=== PATIENT | female | born 1980 ===

== ENCOUNTER 2018-11-09 15:15 | Emergency (ER) | payer SELFPAY ==
[2018-11-09 15:28] VITALS: BMI 23.6
[2018-11-09 15:31] VITALS: RESP 16; O2SAT 100
[2018-11-09 17:26] LABS: BASO % 0.6 % (0.0-2.0); EOS % 0.4 % (0.0-4.0); HEMOGLOBIN 12.6 g/dL (11.0-16.0); LYMPH # 3.2 K/uL (1.0-4.3); LYMPH % 39.6 % (20.0-40.0); MEAN CELL VOLUME 84.8 fL (81.0-99.0); MEAN CORPUSCULAR HEMOGLOBIN 27.7 pg (27.0-31.0); MEAN CORPUSCULAR HGB CONC 32.6 g/dL (33.0-37.0); MEAN PLATELET VOLUME 9.9 fL (7.2-11.7); MONO # 0.4 K/uL (0.0-0.8); MONO % 4.9 % (0.0-10.0); NEUT # 4.4 K/uL (1.8-7.0); NEUT % 54.5 % (50.0-75.0); RBC 4.55 Mil/uL (3.80-5.20); RED CELL DISTRIBUTION WIDTH 12.3 % (11.5-14.5); WHITE BLOOD COUNT 8.1 K/uL (4.8-10.8)
[2018-11-09 17:29] LABS: SQUAMOUS EPITHIAL 1 /hpf (0-5); URINE BACTERIA OCC (<OCC); URINE BILIRUBIN NEGATIVE (NEGATIVE); URINE BLOOD 3+ (NEGATIVE); URINE CLARITY Clear (Clear); URINE COLOR Yellow (YELLOW); URINE GLUCOSE (UA) NORMAL (Normal); URINE LEUKOCYTE ESTERASE TRACE Leu/uL (Negative); URINE PROTEIN 1+ mg/dL (NEGATIVE); URINE UROBILINOGEN NORMAL mg/dL (0.2-1.0)
[2018-11-09 17:41] LABS: ALB/GLOB RATIO 1.6 (1.0-2.1); ALBUMIN 4.1 g/dL (3.5-5.0); ALT/SGPT 25 U/L (9-52); AST/SGOT 27 U/L (14-36); BLOOD UREA NITROGEN 11 mg/dL (7-17); CALCIUM 8.6 mg/dl (8.6-10.4); GFR NON-AFRICAN AMERICAN > 60
--- NOTE | 2018-11-09 18:19 | US ---
Date of service: 11/09/2018 Indication: preg/vag bleeding Comparison: None available Technique: Real-time transabdominal pelvic ultrasound was performed. In addition a transvaginal pelvic ultrasound was necessary to better depict pelvic anatomy. Findings: Uterus measures approximately 9.0 x 7.1 x 8.6 cm. Anteverted. Cervix length measures approximately 3.0 cm. Two probable uterine fibroids measuring 1.2 x 1.3 x 1.6 cm (anterior) and 1.5 x 1.7 x 1.6 cm (posterior). There is a single intrauterine fetus present. 2 mm yolk sac. The gestational sac measures 3.4 cm and is compatible with a gestational age of 8 weeks 3 days. The crown-rump length measures 1.3 cm and is compatible with a gestational age of 7 weeks 3 days. Evidence of 2.8 x 2.0 x 2.9 cm subchorionic hemorrhage with 1.2 x 1.4 x 1.6 cm echogenic focus, possibly blood products/hematoma. heart motion is not detected. The right ovary measures 2.5 x 2.0 x 2.2 cm. The left ovary measures 2.3 x 1.6 x 2.4. Blood flow was demonstrated to both ovaries. Impression: Single intrauterine with estimated gestational age 8 weeks 3 days by gestational sac calculation and 7 weeks 3 days by crown-rump length calculation. heart motion was not detected. Recommend clinical correlation including FAMILY SERVICE AIDE consultation, quantitative beta HCG, and follow-up ultrasound as indicated. Evidence of 2.8 x 2.0 x 2.9 cm subchorionic hemorrhage with 1.2 x 1.4 x 1.6 cm echogenic focus, possibly blood products/hematoma. Advise an anomaly screen at 16-18 weeks gestational age Two probable uterine fibroids.
--- NOTE | 2018-11-09 19:16 | C.PDOC ---
History Of Present Illness 38 year old female presents to the ED for evaluation of vaginal bleeding associated with lower abdominal cramping which began today. Patient is not receiving care at this time. Her states that she was evaluated in [facility] and underwent an ultrasound that showed 6 weeks gestation. Patient states her LMP was 08/17/2018 and she is . Otherwise denies fever, chills, back pain. Time Seen by Provider: 11/09/18 16:10 Chief Complaint (Nursing): Female Genitourinary History Per: Patient History/Exam Limitations: no limitations Onset/Duration Of Symptoms: Hrs Current Symptoms Are (Timing): Still Present Quality Of Discomfort: Cramping Abnormal Vaginal Bleeding: Yes Last Menstral Period: 08/17/2018 : 3 Para: 1 Past Medical History Reviewed: Historical Data, Nursing Documentation, Vital Signs Vital Signs: Last Vital Signs Temp 97.7 F 11/09/18 15:28 Pulse 82 11/09/18 15:28 Resp 16 11/09/18 15:28 BP 103/62 11/09/18 15:28 Pulse Ox 100 11/09/18 15:28 - Medical History PMH: No Chronic Diseases Surgical History: No Surg Hx Family History: States: Unknown Family Hx - Social History Hx Alcohol Use: No Hx Substance Use: No Review Of Systems Constitutional: Negative for: Fever, Chills Gastrointestinal: Positive for: Abdominal Pain (cramping ) Genitourinary: Positive for: Vaginal Bleeding Musculoskeletal: Negative for: Back Pain Physical Exam - Physical Exam Appears: Non-toxic, No Acute Distress Skin: Normal Color, Warm, Dry Head: Atraumatic, Normacephalic Eye(s): bilateral: Normal Inspection Oral Mucosa: Moist Neck: Supple Chest: Symmetrical, No Deformity, No Tenderness Cardiovascular: Rhythm Regular, No Murmur Respiratory: Normal Breath Sounds, No Rales, No Rhonchi, No Wheezing Gastrointestinal/Abdominal: Soft, No Tenderness, No Guarding, No Rebound Pelvic: Vaginal Bleeding, No Cervix Open (closed ) Extremity: Normal ROM, Capillary Refill (less than 2 seconds ) Neurological/Psych: Oriented x3, Normal Speech, Normal Cognition ED Course And Treatment - Laboratory Results Result Diagrams: 11/09/18 17:12 11/09/18 17:12 Lab Results: Total Bilirubin 0.2 mg/dL (0.2-1.3) 11/09/18 17:12 AST 27 U/L (14-36) 11/09/18 17:12 ALT 25 U/L (9-52) 11/09/18 17:12 Alkaline Phosphatase 38 U/L (38-126) 11/09/18 17:12 Total Protein 6.7 g/dL (6.3-8.3) 11/09/18 17:12 Albumin 4.1 g/dL (3.5-5.0) 11/09/18 17:12 Globulin 2.6 gm/dL (2.2-3.9) 11/09/18 17:12 Albumin/Globulin Ratio 1.6 (1.0-2.1) 11/09/18 17:12 Urine Color Yellow (YELLOW) 11/09/18 17:12 Urine Clarity Clear (Clear) 11/09/18 17:12 Urine pH 6.0 (5.0-8.0) 11/09/18 17:12 Ur Specific [place] 1.020 (1.003-1.030) 11/09/18 17:12 Urine Protein 1+ mg/dL (NEGATIVE) H 11/09/18 17:12 Urine Glucose (UA) Normal mg/dL (Normal) 11/09/18 17:12 Urine Ketones Negative mg/dL (NEGATIVE) 11/09/18 17:12 Urine Blood 3+ (NEGATIVE) H 11/09/18 17:12 Urine Nitrate Negative (NEGATIVE) 11/09/18 17:12 Urine Bilirubin Negative (NEGATIVE) 11/09/18 17:12 Urine Urobilinogen Normal mg/dL (0.2-1.0) 11/09/18 17:12 Ur Leukocyte Esterase Trace Blayne/uL (Negative) 11/09/18 17:12 Urine WBC (Auto) 4 /hpf (0-5) 11/09/18 17:12 Urine RBC (Auto) 116 /hpf (0-3) H 11/09/18 17:12 Ur Squamous Epith Cells 1 /hpf (0-5) 11/09/18 17:12 Urine Bacteria Occ (<OCC) H 11/09/18 17:12 Beta HCG, Quant 3155.20 mIU/ML 11/09/18 17:12 O2 Sat by Pulse Oximetry: 100 (on RA) Pulse Ox Interpretation: Normal - CT Scan/US ultrasound Other Rad Studies (CT/US): Read By Radiologist, Radiology Report Reviewed CT/US Interpretation: Date of service: 11/09/2018. Indication: preg/vag bleeding. Comparison: None available. Technique: Real-time transabdominal pelvic ultrasound was performed. In addition a transvaginal pelvic ultrasound was necessary to better depict pelvic anatomy. Findings: Uterus measures approximately 9.0 x 7.1 x 8.6 cm. Anteverted. Cervix length measures approximately 3.0 cm. Two probable uterine fibroids measuring 1.2 x 1.3 x 1.6 cm (anterior) and 1.5 x 1.7 x 1.6 cm (posterior). There is a single intrauterine fetus present. 2 mm yolk sac. The gestational sac measures 3.4 cm and is compatible with a gestational age of 8 weeks 3 days. The crown-rump length measures 1.3 cm and is compatible with a gestational age of 7 weeks 3 days. Evidence of 2.8 x 2.0 x 2.9 cm subchorionic hemorrhage with 1.2 x 1.4 x 1.6 cm echogenic focus, possibly blood products/hematoma. heart motion is not detected. The right ovary measures 2.5 x 2.0 x 2.2 cm. The left ovary measures 2.3 x 1.6 x 2.4. Blood flow was demonstrated to both ovaries. Impression: Single intrauterine with estimated gestational age 8 weeks 3 days by gestational sac calculation and 7 weeks 3 days by crown-rump length calculation. heart motion was not detected. Recommend clinical correlation including ART THERAPY CERTIFIED SUPERVISOR consultation, quantitative beta HCG, and follow-up ultrasound as indicated. Evidence of 2.8 x 2.0 x 2.9 cm subchorionic hemorrhage with 1.2 x 1.4 x 1.6 cm echogenic focus, possibly blood products/hematoma. Advise an anomaly screen at 16-18 weeks gestational age. Two probable uterine fibroids. Medical Decision Making Medical Decision Making: Progress: Bloodwork, urinalysis and ultrasound ordered and reviewed. Ultrasound shows no heart rate. Case discussed with Dr. Ferguson (PRESS CUTTER) hr receptionist, who states patient is likely undergoing a missed . Advised to instruct patient to follow up for evacuation. Disposition Counseled Patient/Family Regarding: Studies Performed, Diagnosis, Need For Followup - Disposition Referrals: [facility] [Outside] [facility]Outside] [facility] [Outside] Disposition: HOME/ ROUTINE Disposition Time: 19:18 Condition: STABLE Additional Instructions: LONNY ASH, thank you for letting us take care of you today. Your provider was Kerry Merritt MD and you were treated for VAGINAL BLEEDING. The emergency medical care you received today was directed at your acute symptoms. If you were prescribed any medication, please fill it and take as directed. It may take several days for your symptoms to resolve. Return to the Emergency Department if your symptoms worsen, do not improve, or if you have any other problems. Please contact your doctor or call one of the physicians/clinics you have been referred to that are listed on the Patient Visit Information form that is included in your discharge packet. Bring any paperwork you were given at discharge with you along with any medications you are taking to your follow up visit. Our treatment cannot replace ongoing medical care by a primary care provider outside of the emergency department. Thank you for allowing the [facility] team to be part of your care today. TIEMARIA M QUE HACER FRANCINE ZACARIAS EN 1-2 BARTH CON MALT ROASTER. Instructions: Miscarriage (DC) Forms: Gen Discharge Inst Faroese, BISON (Faroese) Print Language: POLISH - POA Present On Arrival: None - Clinical Impression Clinical Impression: Missed - Scribe Statement The provider has reviewed the documentation as recorded by the Scribe (Gail Renee) Provider Attestation: All medical record entries made by the Scribe were at my direction and personally dictated by me. I have reviewed the chart and agree that the record accurately reflects my personal performance of the history, physical exam, medical decision making, and the department course for this patient. I have also personally directed, reviewed, and agree with the discharge instructions and disposition.
[2018-11-09 19:39] VITALS: BP 104/65; PULSE 80; TEMP 97.8
== END 2018-11-09 19:38 | disposition home or self-care (01) ==
LOC: C.ER 15:15
DX: O02.1 Missed abortion (principal); Z3A.08 8 weeks gestation of pregnancy

== ENCOUNTER 2018-11-16 16:36 | Emergency (ER) | payer OTHER ==
[2018-11-16 16:48] VITALS: BMI 24.5
[2018-11-16 16:53] VITALS: TEMP 98.4
[2018-11-16 17:36] LABS: SQUAMOUS EPITHIAL 1 /hpf (0-5); URINE BILIRUBIN NEGATIVE (NEGATIVE); URINE BLOOD NEGATIVE (NEGATIVE); URINE CLARITY Clear (Clear); URINE COLOR Straw (YELLOW); URINE GLUCOSE (UA) NORMAL (Normal); URINE LEUKOCYTE ESTERASE NEG Leu/uL (Negative); URINE PROTEIN NEGATIVE (NEGATIVE); URINE UROBILINOGEN NORMAL mg/dL (0.2-1.0)
[2018-11-16 17:51] LABS: HCG,QUALITATIVE URINE POSITIVE (NEGATIVE)
[2018-11-16 18:20] LABS: BASO # 0.1 K/uL (0.0-0.2); BASO % 0.7 % (0.0-2.0); EOS # 0.1 K/uL (0.0-0.7); EOS % 0.8 % (0.0-4.0); HEMOGLOBIN 12.5 g/dL (11.0-16.0); LYMPH # 3.4 K/uL (1.0-4.3); LYMPH % 42.3 % (20.0-40.0); MEAN CELL VOLUME 84.6 fL (81.0-99.0); MEAN CORPUSCULAR HEMOGLOBIN 28.1 pg (27.0-31.0); MEAN CORPUSCULAR HGB CONC 33.2 g/dL (33.0-37.0); MEAN PLATELET VOLUME 9.7 fL (7.2-11.7); MONO # 0.4 K/uL (0.0-0.8); MONO % 4.6 % (0.0-10.0); NEUT # 4.2 K/uL (1.8-7.0); NEUT % 51.6 % (50.0-75.0); NRBC % 0.1 % (0.0-2.0); RBC 4.45 Mil/uL (3.80-5.20); RED CELL DISTRIBUTION WIDTH 12.2 % (11.5-14.5); WHITE BLOOD COUNT 8.1 K/uL (4.8-10.8)
--- NOTE | 2018-11-16 18:26 | C.PDOC ---
History Of Present Illness 38 y/o female presents to ED for medical evaluation of vaginal bleeding. She was seen on 11/09/18 for missed - no heart motion was detected on ultrasound at 7-8 gestational age. She was advised to follow up with [facility] for evacuation but patient had not scheduled. She reports to the ED for stabbing pelvic pain that started today in the AM that became progressively worse, currently 7/10. She continues to have dark vaginal bleeding and also reports weakness but denies fever, chills, dizziness, SOB, and chest pain. <Marisela Soares - Last Filed: 11/16/18 18:56> History Per: Patient History/Exam Limitations: language barrier (Floor Covering Printer: [id number]) Onset/Duration Of Symptoms: Worse Since (this morning) Current Symptoms Are (Timing): Still Present Severity: Moderate Pain Scale Rating Of: 7 Quality Of Discomfort: Stabbing Associated Symptoms: denies: Fever, Chills, Nausea, Vomiting, Diarrhea, Loss Of Appetite, Back Pain, Chest Pain, Urinary Symptoms Alleviating Factors: None Recent travel outside of the [place]: No Abnormal Vaginal Bleeding: Yes <Marisela Soares - Last Filed: 11/16/18 18:56> <Farzad Reese - Last Filed: 11/16/18 20:58> Time Seen by Provider: 11/16/18 16:50 Chief Complaint (Nursing): Abdominal Pain Past Medical History Reviewed: Historical Data, Nursing Documentation, Vital Signs Vital Signs: Last Vital Signs Temp 98.4 F 11/16/18 16:49 Pulse 89 11/16/18 16:49 Resp 11/16/18 16:49 BP 107/70 11/16/18 16:49 Pulse Ox 97 11/16/18 16:49 Other Surgeries: Plastic Surgery- Breast and Abdomen Family History: States: Unknown Family Hx - Social History Hx Alcohol Use: No Hx Substance Use: No <Marisela Soares - Last Filed: 11/16/18 18:56> Vital Signs: Last Vital Signs Temp 98.4 F 11/16/18 16:49 Pulse 89 11/16/18 16:49 Resp 17 11/16/18 16:49 BP 107/70 11/16/18 16:49 Pulse Ox 97 11/16/18 19:23 <Farzad Reese - Last Filed: 11/16/18 20:58> Review Of Systems Constitutional: Positive for: Weakness. Negative for: Fever, Chills, Sweats Cardiovascular: Negative for: Chest Pain Respiratory: Negative for: Shortness of Breath Gastrointestinal: Positive for: Abdominal Pain (suprapubic). Negative for: Nausea, Vomiting Genitourinary: Positive for: Vaginal Bleeding. Negative for: Dysuria, Frequency Musculoskeletal: Negative for: Back Pain Skin: Negative for: Rash Neurological: Negative for: Headache, Dizziness <Marisela Soares - Last Filed: 11/16/18 18:56> Physical Exam - Physical Exam Appears: Well, Non-toxic, No Acute Distress Skin: Normal Color, Warm, Dry Head: Atraumatic, Normacephalic, No Tenderness Eye(s): bilateral: Normal Inspection Nose: Flaring Oral Mucosa: Moist Neck: Supple Chest: Symmetrical Cardiovascular: Rhythm Regular Respiratory: Normal Breath Sounds, No Wheezing Gastrointestinal/Abdominal: Soft, Tenderness (suprapubic) Back: No CVA Tenderness Pelvic: Other (deferred to [facility]) Neurological/Psych: Oriented x3, Normal Speech, Normal Sensation <JudiechocoMarisela - Last Filed: 11/16/18 18:56> ED Course And Treatment - Laboratory Results Result Diagrams: 11/16/18 18:14 11/16/18 18:14 Lab Results: Urine Color Straw (YELLOW) 11/16/18 17:29 Urine Clarity Clear (Clear) 11/16/18 17:29 Urine pH 6.0 (5.0-8.0) 11/16/18 17:29 Ur Specific [place] 1.006 (1.003-1.030) 11/16/18 17:29 Urine Protein Negative mg/dL (NEGATIVE) 11/16/18 17:29 Urine Glucose (UA) Normal mg/dL (Normal) 11/16/18 17:29 Urine Ketones Negative mg/dL (NEGATIVE) 11/16/18 17:29 Urine Blood Negative (NEGATIVE) 11/16/18 17:29 Urine Nitrate Negative (NEGATIVE) 11/16/18 17:29 Urine Bilirubin Negative (NEGATIVE) 11/16/18 17:29 Urine Urobilinogen Normal mg/dL (0.2-1.0) 11/16/18 17:29 Ur Leukocyte Esterase Neg Blayne/uL (Negative) 11/16/18 17:29 Urine WBC (Auto) < 1 /hpf (0-5) 11/16/18 17:29 Urine RBC (Auto) < 1 /hpf (0-3) 11/16/18 17:29 Ur Squamous Epith Cells 1 /hpf (0-5) 11/16/18 17:29 Urine HCG, Qual Positive (NEGATIVE) 11/16/18 17:29 Urine HCG, Qual Positive (NEGATIVE) 11/16/18 17:29 O2 Sat by Pulse Oximetry: 97 Progress Note: Labs, UA, and Pelvic Sono ordered - pending results. Morphine given for pain. will likely need rn gyn consults for possible D&C <Marisela Soares - Last Filed: 11/16/18 18:56> - Laboratory Results Result Diagrams: 11/16/18 18:14 11/16/18 18:14 Lab Results: Total Bilirubin 0.3 mg/dL (0.2-1.3) 11/16/18 18:14 AST 27 U/L (14-36) 11/16/18 18:14 ALT 26 U/L (9-52) 11/16/18 18:14 Alkaline Phosphatase 38 U/L (38-126) 11/16/18 18:14 Total Protein 6.5 g/dL (6.3-8.3) 11/16/18 18:14 Albumin 4.0 g/dL (3.5-5.0) 11/16/18 18:14 Globulin 2.5 gm/dL (2.2-3.9) 11/16/18 18:14 Albumin/Globulin Ratio 1.6 (1.0-2.1) 11/16/18 18:14 Urine Color Straw (YELLOW) 11/16/18 17:29 Urine Clarity Clear (Clear) 11/16/18 17:29 Urine pH 6.0 (5.0-8.0) 11/16/18 17:29 Ur Specific [place] 1.006 (1.003-1.030) 11/16/18 17:29 Urine Protein Negative mg/dL (NEGATIVE) 11/16/18 17:29 Urine Glucose (UA) Normal mg/dL (Normal) 11/16/18 17:29 Urine Ketones Negative mg/dL (NEGATIVE) 11/16/18 17:29 Urine Blood Negative (NEGATIVE) 11/16/18 17:29 Urine Nitrate Negative (NEGATIVE) 11/16/18 17:29 Urine Bilirubin Negative (NEGATIVE) 11/16/18 17:29 Urine Urobilinogen Normal mg/dL (0.2-1.0) 11/16/18 17:29 Ur Leukocyte Esterase Neg Blayne/uL (Negative) 11/16/18 17:29 Urine WBC (Auto) < 1 /hpf (0-5) 11/16/18 17:29 Urine RBC (Auto) < 1 /hpf (0-3) 11/16/18 17:29 Ur Squamous Epith Cells 1 /hpf (0-5) 11/16/18 17:29 Urine HCG, Qual Positive (NEGATIVE) 11/16/18 17: Beta HCG, Quant 87.10 mIU/ML 11/16/18 18:14 Urine HCG, Qual Positive (NEGATIVE) 11/16/18 17:29 - CT Scan/US ultrasound Other Rad Studies (CT/US): Read By Radiologist, Radiology Report Reviewed CT/US Interpretation: EXAM: US Pelvis, Complete Transvaginal and T ransabdominal. COMPARISON: None provided. CLINICAL HISTORY: Vaginal bleeding , missed . TECHNIQUE: Transvaginal and transabdominal pelvic ultrasound (complete) with image documentation. FINDINGS: ENDOMETRIUM: The endometrial echo complex is thickened measuring 9.5 mm in AP dimension and heterogeneous suggestive of multiple blood clots. This corresponds with the given history of recent spontaneous expulsion of a failed intrauterine . UTERUS/CERVIX: The uterus appears within normal limits measuring approximately 8.5 x 5.6 x 5.7 cm in longitudinal, AP and transverse dimensions respectively. A few small uterine fibroids are identified in the fundus, posterior uterine body and anterior mid uterine body measuring 1.3 cm, 1.1 cm and 1.3 cm in size respectively. RIGHT OVARY: Normal Doppler flow. No abnormal mass. Several tiny follicles are present. LEFT OVARY: Normal Doppler flow. No abnormal mass. Several tiny follicles are present. FREE FLUID: No free fluid. IMPRESSION: 1. Thickening and heterogeneity of the endometrial echo complex thought consistent with blood clots. This corresponds with the given history of recent spontaneous expulsion of a failed intrauterine . 2. Several small uterine fibroids are present. 3. A few tiny bilateral ovarian follicles are present. <Farzad Reese Last Filed: 11/16/18 20:58> Disposition - Disposition Disposition Time: 19:22 <Marisela Soares - Last Filed: 11/16/18 18:56> <Farzad Reese - Last Filed: 11/16/18 20:58> - Disposition Condition: GOOD Forms: [facility] (Divehi) - Clinical Impression Clinical Impression: Missed Physician Patient Turnover Patient Signed Over To: Farzad Reese Handoff Comments: Pelvic Ultrasound is pending; likely need [facility] consult <Marisela Soares - Last Filed: 11/16/18 18:56>
[2018-11-16 18:44] LABS: ALB/GLOB RATIO 1.6 (1.0-2.1); ALT/SGPT 26 U/L (9-52); AST/SGOT 27 U/L (14-36); BLOOD UREA NITROGEN 15 mg/dL (7-17); CALCIUM 8.8 mg/dl (8.6-10.4); GFR NON-AFRICAN AMERICAN > 60
[2018-11-16 21:46] VITALS: BP 104/71; PULSE 64; RESP 16; O2SAT 99
--- NOTE | 2018-11-17 13:01 | US ---
Date of service: 2018-11-16 19:38:08 HISTORY: Vaginal bleeding; missed COMPARISON: None available. TECHNIQUE: Transabdominal and transvaginal pelvic ultrasound was performed. FINDINGS: UTERUS: Measures 8.6 x 5.2 x 5.6 cm. Retroverted enlarged. There is a 1.2 x 1.0 x 1.2 cm intramural fundal fibroid, 1.1 by 1.0 x 1.0 cm intramural posterior wall fibroid in the lower uterine segment and 1.2 x 1.2 x 1.3 cm intramural anterior wall fibroid in the midbody of the uterus.. ENDOMETRIUM: Measures 8.2 mm in diameter. Heterogeneous in appearance. CERVIX: No cervical abnormality identified. RIGHT OVARY: Measures 2.8 x 1.6 x 2.4 cm. No solid mass. Normal flow. LEFT OVARY: Measures 2.1 x 2.1 x 1.9 cm. No solid mass. Normal flow. FREE FLUID: No significant free fluid noted. OTHER FINDINGS: None. IMPRESSION: 1. Enlarged fibroid uterus, the largest anterior wall intramural fibroid in the midbody measures 1.2 x 1.2 x 1.3 cm. 2. Heterogeneous central endometrial echo complex. A preliminary report was provided by [facility].
== END 2018-11-16 21:45 | disposition home or self-care (01) ==
LOC: C.ER 16:36
DX: O02.1 Missed abortion (principal)
CPT/HCPCS: 76830; 76856; 80053; 81001; 84702; 84703; 85025; 96372; 99284; J2210